=== PATIENT | female | born 1975 | race Caucasian/White ===

== ENCOUNTER 2018-09-14 11:55 | Emergency (ER) | payer OTHER ==
[~2018-09-14] VITALS: Ht 165.1 cm; Wt 59.0 kg
[~2018-09-14 11:55] MED LIST: AUGMENTIN 875875 MG PO; FIORICET 325 MG1 TAB PO; FLEXERIL10 MG PO; HYDROCODONE BIT1 T11 PO; KEFLEX500 MG PO; LOPRESSOR25 MG PO; Lopressor25 MG PO; MEDROL DOSEPAK4 MG PO; MOTRIN600 MG PO; MOTRIN800 MG PO; NKHM; PENICILLIN VK500 MG PO; PRED-PAK 455 MG PO; PREVACID30 MG PO; PROPRANOLOL10 MG PO; SYNTHROID0.025 MG PO; Synthroid,Levo75 MCG PO; ZOFRAN ODT4 MG SL; Zofran4 MG PO
== END 2018-09-14 13:23 | disposition home or self-care (01) ==
LOC: ED 11:55
DX: S61.210A Laceration without foreign body of right index finger without damage to nail, initial encounter (principal); Z79.899 Other long term (current) drug therapy; Z90.49 Acquired absence of other specified parts of digestive tract; W26.8XXA Contact with other sharp object(s), not elsewhere classified, initial encounter; Y93.G1 Activity, food preparation and clean up; Y92.89 Other specified places as the place of occurrence of the external cause; Y99.8 Other external cause status

== ENCOUNTER 2019-04-17 12:36 | Emergency (ER) | payer BC, OTHER ==
[~2019-04-17] VITALS: Ht 165.1 cm; Wt 53.1 kg
[~2019-04-17 12:36] MED LIST changes: -SYNTHROID0.025 MG PO; +Synthroid,Lev100 MCG PO
[2019-04-17 14:15] LABS: BILIRUBIN NEGATIVE (NEGATIVE); BLOOD TRACE-INTACT (NEGATIVE); CLARITY CLEAR (CLEAR); COLOR YELLOW (YELLOW); GLUCOSE NEGATIVE (NEGATIVE); KETONE NEGATIVE (NEGATIVE); LEUKO ESTERASE NEGATIVE (NEGATIVE); NITRITE NEGATIVE (NEGATIVE); PH 6.5 (5.0-9.0); SPECIFIC GRAVITY <= 1.005 (1.005-1.030); UROBILINOGEN 0.2 E.U./dl (0.2-1.0)
[2019-04-17 14:30] LABS: BACTERIA 2+; RBC 0-2 rbc/hpf (0-2); WBC 0-2 wbc/hpf (0-5)
[2019-04-17] MEDS ORDERED: MEDROL DOSEPAK4 MG PO (14:53)
[2019-04-17] MEDS ORDERED: NAPROSYN500 MG PO (14:53)
== END 2019-04-17 14:58 | disposition home or self-care (01) ==
LOC: ED 12:36
PROVIDERS: Nurse Practitioner Family
DX: G89.29 Other chronic pain (principal); M54.5 Low back pain; R39.15 Urgency of urination; R35.0 Frequency of micturition; Z79.899 Other long term (current) drug therapy; Z90.49 Acquired absence of other specified parts of digestive tract

== ENCOUNTER 2019-11-08 14:35 | Emergency (ER) | payer SELFPAY ==
[~2019-11-08] VITALS: Ht 165.1 cm; Wt 49.9 kg
[~2019-11-08 14:35] MED LIST changes: +NAPROSYN500 MG PO
[2019-11-08] MEDS ORDERED: CEPHALEXIN500 M1 PO (17:09)
== END 2019-11-08 17:25 | disposition home or self-care (01) ==
LOC: ED 14:35
DX: S61.210A Laceration without foreign body of right index finger without damage to nail, initial encounter (principal); G43.909 Migraine, unspecified, not intractable, without status migrainosus; E07.9 Disorder of thyroid, unspecified; Z79.899 Other long term (current) drug therapy; Z98.890 Other specified postprocedural states; Z98.51 Tubal ligation status; W22.8XXA Striking against or struck by other objects, initial encounter; Y93.89 Activity, other specified; Y92.89 Other specified places as the place of occurrence of the external cause; Y99.8 Other external cause status

== ENCOUNTER 2020-01-12 11:09 | Emergency (ER) | payer SELFPAY ==
[~2020-01-12] VITALS: Ht 165.1 cm; Wt 49.9 kg
[~2020-01-12 11:09] MED LIST changes: +CEPHALEXIN500 M1 PO
[2020-01-12 11:51] LABS: BASO # 0.1 10*3/uL (0.0-0.1); BASO % 0.6 % (0.0-1.0); EOS # 0.3 10*3/uL (0.0-0.4); EOS % 3.3 % (1.0-4.0); HEMATOCRIT 39.7 % (37.0-47.0); LYMPH # 2.4 10*3/uL (1.3-4.4); LYMPH % 28.3 % (27.0-41.0); MEAN CELL VOLUME 91.9 fl (81.0-99.0); MEAN CORPUSCULAR HGB 29.9 pg (27.0-31.0); MEAN CORPUSCULAR HGB CONC 32.5 g/dl (33.0-37.0); MEAN PLATELET VOLUME 11.7 fl (9.6-12.3); MONO # 0.6 10*3/uL (0.1-1.0); MONO % 6.9 % (3.0-9.0); NEUT # 5.1 10*3/uL (2.3-7.9); NEUT % 60.7 % (47.0-73.0); PLATELET COUNT AUTOMATED 265 10*3/uL (130-400); RED BLOOD COUNT 4.32 10*6/uL (4.10-5.10); RED CELL DISTRI WIDTH 13.8 % (0-14.5); WHITE BLOOD COUNT 8.5 10*3/uL (4.8-10.8)
[2020-01-12 12:11] LABS: ALBUMIN 3.1 gm/dl (3.1-4.5); ALKALINE PHOSPHATASE 153 U/L (45-117); BUN 8 mg/dl (7-24); CHLORIDE 112 mmol/L (98-107); LIPASE 68 U/L (73-393); POTASSIUM 3.9 mmol/L (3.5-5.1); SGOT/AST 22 IU/L (3-35); SGPT/ALT 35 U/L (12-78); SODIUM 140 mmol/L (136-145)
[2020-01-12 12:13] LABS: TROPONIN I < 0.015 ng/ml (<0.045)
[2020-01-12] MEDS ORDERED: DOXYCYCLINE100 M3 PO (12:55)
== END 2020-01-12 12:59 | disposition home or self-care (01) ==
LOC: ED 11:09
PROVIDERS: Nurse Practitioner Family
DX: M79.89 Other specified soft tissue disorders (principal); G43.909 Migraine, unspecified, not intractable, without status migrainosus; Z79.899 Other long term (current) drug therapy

== ENCOUNTER 2021-01-02 12:46 | Emergency (ER) | payer SELFPAY ==
[~2021-01-02] VITALS: Wt 59.0 kg
[~2021-01-02 12:46] MED LIST changes: +DOXYCYCLINE100 M3 PO
[2021-01-02 13:24] LABS: BASO # 0.1 10*3/uL (0.0-0.1); BASO % 0.4 % (0.0-1.0); EOS # 0.1 10*3/uL (0.0-0.4); EOS % 0.8 % (1.0-4.0); HEMATOCRIT 43.3 % (37.0-47.0); LYMPH # 2.2 10*3/uL (1.3-4.4); LYMPH % 16.6 % (27.0-41.0); MEAN CELL VOLUME 92.5 fl (81.0-99.0); MEAN CORPUSCULAR HGB CONC 33.5 g/dl (33.0-37.0); MEAN PLATELET VOLUME 12.3 fl (9.6-12.3); MONO # 0.7 10*3/uL (0.1-1.0); NEUT # 10.2 10*3/uL (2.3-7.9); NEUT % 76.8 % (47.0-73.0); PLATELET COUNT AUTOMATED 304 10*3/uL (130-400); RED BLOOD COUNT 4.68 10*6/uL (4.10-5.10); RED CELL DISTRI WIDTH 13.7 % (0-14.5); WHITE BLOOD COUNT 13.3 10*3/uL (4.8-10.8)
[2021-01-02 13:53] LABS: BILIRUBIN Negative (Negative); BLOOD 2+ (Negative); CLARITY Turbid (Clear); COLOR Dark Yellow (Yellow); GLUCOSE Negative (Negative); KETONE 1+ (Negative); LEUKO ESTERASE 1+ (Negative); NITRITE Negative (Negative); PH 5.5 (4.5-8.0); SPECIFIC GRAVITY 1.025 (1.001-1.030)
[2021-01-02 14:00] LABS: ALBUMIN 3.4 gm/dl (3.1-4.5); ALKALINE PHOSPHATASE 118 U/L (45-117); BUN 10 mg/dl (7-24); CHLORIDE 108 mmol/L (98-107); CREATININE 0.61 mg/dL (0.55-1.02); LIPASE 47 U/L (73-393); POTASSIUM 3.5 mmol/L (3.5-5.1); SGOT/AST 14 IU/L (3-35); SGPT/ALT 20 U/L (12-78); SODIUM 139 mmol/L (136-145); TOTAL PROTEIN 8.2 gm/dL (6.4-8.2)
[2021-01-02 14:16] LABS: BACTERIA TRACE; EPITHELIAL CELLS TNTC; MUCOUS 2+; RBC 0-2 rbc/hpf (0-2)
[2021-01-02] MEDS ORDERED: ZOFRAN4 MG PO (16:29)
[2021-01-02] MEDS ORDERED: SEPTDS PO (16:29)
== END 2021-01-02 16:35 | disposition home or self-care (01) ==
LOC: ED 12:46
PROVIDERS: Emergency Medicine
DX: R30.0 Dysuria (principal); R10.84 Generalized abdominal pain; Z98.51 Tubal ligation status; Z79.899 Other long term (current) drug therapy

== ENCOUNTER 2022-10-27 15:03 | Emergency (ER) | payer OTHER ==
[~2022-10-27] VITALS: Ht 165.1 cm; Wt 56.2 kg
[~2022-10-27 15:03] MED LIST changes: +SEPTDS PO; +ZOFRAN4 MG PO
== END 2022-10-27 16:42 | disposition left against medical advice (07) ==
LOC: ED 15:03
DX: R10.32 Left lower quadrant pain (principal); Z53.21 Procedure and treatment not carried out due to patient leaving prior to being seen by health care provider

== ENCOUNTER → 2023-05-25 | Outpatient (CLI) | payer OTHER ==
[2023-05-25 12:50] LABS: HEMATOCRIT 37.8 % (37.0-47.0); MEAN CELL VOLUME 93.6 fl (81.0-99.0); MEAN CORPUSCULAR HGB 31.7 pg (27.0-31.0); MEAN CORPUSCULAR HGB CONC 33.9 g/dl (33.0-37.0); MEAN PLATELET VOLUME 11.2 fl (9.6-12.3); RED BLOOD COUNT 4.04 10*6/uL (4.10-5.10); RED CELL DISTRI WIDTH 13.2 % (0-14.5); WHITE BLOOD COUNT 10.9 10*3/uL (4.8-10.8)
[2023-05-25 13:23] LABS: ALKALINE PHOSPHATASE 124 U/L (46-116); BUN 6 mg/dl (9-23); CHLORIDE 107 mmol/L (98-107); CHOLESTEROL 173 mg/dL (<200); FREE T4 0.42 ng/dl (0.89-1.76); LDL CHOLESTEROL 99 mg/dL (9-159); POTASSIUM 3.7 mmol/L (3.4-5.1); SGPT/ALT 11 U/L (5-49); TOTAL PROTEIN 7.3 gm/dL (6.0-8.0); TRIGLYCERIDES 177 mg/dl (<150)
[2023-05-25 13:25] LABS: VITAMIN D, 25-HYDROXY 30.1 ng/mL (30-100)
== END | disposition home or self-care (01) ==
LOC: LAB 12:26
PROVIDERS: ATTEND Family Medicine
DX: E78.00 Pure hypercholesterolemia, unspecified (principal); E55.9 Vitamin D deficiency, unspecified; E06.3 Autoimmune thyroiditis; R53.83 Other fatigue; Z72.0 Tobacco use; M79.10 Myalgia, unspecified site; M25.50 Pain in unspecified joint

== ENCOUNTER → 2023-06-24 | Outpatient (CLI) | payer OTHER | END | disposition home or self-care (01) | LOC: RAD 12:59 | PROVIDERS: ATTEND Family Medicine | DX: M25.512 Pain in left shoulder (principal); Z91.81 History of falling ==

== ENCOUNTER → 2023-07-28 | Outpatient (CLI) | payer OTHER | END | disposition home or self-care (01) | LOC: US 07-15 09:00 → MAMMO 07-15 09:00 → US 07-15 09:30 → MAMMO 09:00 | PROVIDERS: ATTEND Family Medicine | DX: N63.10 Unspecified lump in the right breast, unspecified quadrant (principal); R92.343 Mammographic extreme density, bilateral breasts ==

== ENCOUNTER → 2023-08-13 | Outpatient (CLI) | payer OTHER ==
[2023-08-13 13:07] LABS: HEMATOCRIT 43.3 % (37.0-47.0); MEAN CELL VOLUME 92.7 fl (81.0-99.0); MEAN CORPUSCULAR HGB 30.4 pg (27.0-31.0); MEAN CORPUSCULAR HGB CONC 32.8 g/dl (33.0-37.0); MEAN PLATELET VOLUME 11.7 fl (9.6-12.3); RED BLOOD COUNT 4.67 10*6/uL (4.10-5.10); RED CELL DISTRI WIDTH 12.3 % (0-14.5); WHITE BLOOD COUNT 10.1 10*3/uL (4.8-10.8)
[2023-08-13 13:41] LABS: ALKALINE PHOSPHATASE 125 U/L (46-116); CHLORIDE 107 mmol/L (98-107); CHOLESTEROL 171 mg/dL (<200); FREE T4 0.93 ng/dl (0.89-1.76); LDL CHOLESTEROL 112 mg/dL (9-159); POTASSIUM 3.6 mmol/L (3.4-5.1); SGPT/ALT 8 U/L (5-49); TOTAL PROTEIN 7.8 gm/dL (6.0-8.0); TRIGLYCERIDES 131 mg/dl (<150); VITAMIN D, 25-HYDROXY 24.3 ng/mL (30-100)
[2023-08-13 13:58] LABS: BUN < 5 mg/dl (9-23)
== END | disposition home or self-care (01) ==
LOC: LAB 12:41
PROVIDERS: ATTEND Family Medicine
DX: E03.9 Hypothyroidism, unspecified (principal); E55.9 Vitamin D deficiency, unspecified; R53.83 Other fatigue; G47.00 Insomnia, unspecified; Z79.899 Other long term (current) drug therapy; Z51.81 Encounter for therapeutic drug level monitoring

== ENCOUNTER → 2023-09-29 | Outpatient (CLI) | payer OTHER | END | disposition home or self-care (01) | LOC: CARD 01:37 | PROVIDERS: ATTEND Internal Medicine Cardiovascular Disease | DX: R01.1 Cardiac murmur, unspecified (principal); R06.02 Shortness of breath; Z87.898 Personal history of other specified conditions ==

== ENCOUNTER → 2023-11-09 | Outpatient (CLI) | payer OTHER ==
[2023-11-09 12:45] LABS: HEMATOCRIT 41.1 % (37.0-47.0); MEAN CELL VOLUME 92.2 fl (81.0-99.0); MEAN CORPUSCULAR HGB 29.8 pg (27.0-31.0); MEAN CORPUSCULAR HGB CONC 32.4 g/dl (33.0-37.0); MEAN PLATELET VOLUME 11.9 fl (9.6-12.3); RED BLOOD COUNT 4.46 10*6/uL (4.10-5.10); RED CELL DISTRI WIDTH 13.2 % (0-14.5); WHITE BLOOD COUNT 8.3 10*3/uL (4.8-10.8)
[2023-11-09 13:16] LABS: ALKALINE PHOSPHATASE 114 U/L (46-116); BUN 6 mg/dl (9-23); CHLORIDE 108 mmol/L (98-107); FREE T4 1.11 ng/dl (0.89-1.76); POTASSIUM 3.2 mmol/L (3.4-5.1); SGPT/ALT 7 U/L (5-49); TOTAL PROTEIN 7.5 gm/dL (6.0-8.0)
== END | disposition home or self-care (01) ==
LOC: LAB 11:55
PROVIDERS: ATTEND Family Medicine
DX: K21.9 Gastro-esophageal reflux disease without esophagitis (principal); E03.9 Hypothyroidism, unspecified; R53.83 Other fatigue; K59.00 Constipation, unspecified

== ENCOUNTER 2023-11-30 11:27 | Emergency (ER) | payer SELFPAY ==
[~2023-11-30] VITALS: Ht 167.6 cm; Wt 56.7 kg
[2023-11-30] MEDS ORDERED: HYOSCYAMINE0.125 M2 SL (11:49)
[2023-11-30] MEDS ORDERED: Synthroid,Levo88 MCG PO (11:49)
[2023-11-30] MEDS ORDERED: LACTULOSE10 GM/151 PO (11:50)
[2023-11-30] MEDS ORDERED: [UNRECOGNIZED DRUG - OTHER] PO (11:51)
[2023-11-30] MEDS ORDERED: AMOX-CLAV 875-1 EACH PO (13:36)
== END 2023-11-30 13:40 | disposition home or self-care (01) ==
LOC: ED 11:27
DX: S60.412A Abrasion of right middle finger, initial encounter (principal); L08.9 Local infection of the skin and subcutaneous tissue, unspecified; K21.9 Gastro-esophageal reflux disease without esophagitis; E03.9 Hypothyroidism, unspecified; Z79.2 Long term (current) use of antibiotics; Z79.899 Other long term (current) drug therapy; Z98.890 Other specified postprocedural states; Z98.51 Tubal ligation status; X58.XXXA Exposure to other specified factors, initial encounter; Y93.89 Activity, other specified; Y92.008 Other place in unspecified non-institutional (private) residence as the place of occurrence of the external cause; Y99.8 Other external cause status

== ENCOUNTER 2024-05-29 16:49 | Emergency (ER) | payer OTHER ==
[~2024-05-29] VITALS: Ht 165.1 cm; Wt 56.7 kg
[~2024-05-29 16:49] MED LIST changes: +AMOX-CLAV 875-1 EACH PO; +HYOSCYAMINE0.125 M2 SL; +LACTULOSE10 GM/151 PO; +Synthroid,Levo88 MCG PO; +[UNRECOGNIZED DRUG - OTHER] PO
[2024-05-29] MEDS ORDERED: IOHEXOL 300 MG/ML 100 ML VIAL IV ONE (17:30)
[2024-05-29 17:34] LABS: BILIRUBIN Negative (Negative); BLOOD 3+ (Negative); CLARITY Cloudy (Clear); COLOR Red (Yellow); GLUCOSE Negative (Negative); KETONE Negative (Negative); LEUKO ESTERASE 1+ (Negative); NITRITE Negative (Negative); PH 6.5 (4.5-8.0); UROBILINOGEN 0.2 E.U./dl (0.0-1.0)
[2024-05-29 17:41] LABS: BACTERIA 2+; RBC TNTC rbc/hpf (0-2)
[2024-05-29 17:42] LABS: EPITHELIAL CELLS 16-20
[2024-05-29 17:44] LABS: BASO # 0.1 10*3/uL (0.0-0.1); BASO % 0.6 % (0.0-1.0); EOS # 0.2 10*3/uL (0.0-0.4); EOS % 1.7 % (1.0-4.0); HEMATOCRIT 39.9 % (37.0-47.0); MEAN CELL VOLUME 92.4 fl (81.0-99.0); MEAN CORPUSCULAR HGB 30.8 pg (27.0-31.0); MEAN CORPUSCULAR HGB CONC 33.3 g/dl (33.0-37.0); MEAN PLATELET VOLUME 11.6 fl (9.6-12.3); MONO # 0.6 10*3/uL (0.1-1.0); NEUT # 6.9 10*3/uL (2.3-7.9); PLATELET COUNT AUTOMATED 364 10*3/uL (130-400); RED BLOOD COUNT 4.32 10*6/uL (4.10-5.10); RED CELL DISTRI WIDTH 13.3 % (0-14.5); WHITE BLOOD COUNT 11.5 10*3/uL (4.8-10.8)
[2024-05-29 18:05] LABS: ALKALINE PHOSPHATASE 135 U/L (46-116); BUN 5 mg/dl (9-23); CHLORIDE 103 mmol/L (98-107); POTASSIUM 3.2 mmol/L (3.4-5.1); SGPT/ALT 15 U/L (5-49)
[2024-05-29] MEDS ORDERED: POTASSIUM CHLORIDE 20 MEQ TAB PO ONE (18:15)
[2024-05-29] MEDS ORDERED: Ondansetron4 MG PO (19:39)
[2024-05-29] MEDS ORDERED: FLOMAX0.4 MG PO (19:39)
[2024-05-29] MEDS ORDERED: KETOROLAC10 MG PO (19:39)
[2024-05-29] MEDS ORDERED: Tamsulosin Hydrochloride 0.4 MG CAP PO ONE (19:40)
[2024-05-29] MEDS ORDERED: Ketorolac Tromethamine 30 MG/ML VIAL IM ONE (19:40)
[2024-05-29] MEDS ORDERED: Ondansetron Hydrochloride 4 MG TAB SL ONE (19:40)
== END 2024-05-29 19:53 | disposition home or self-care (01) ==
LOC: ED 16:49
PROVIDERS: Nurse Practitioner Family
DX: N20.0 Calculus of kidney (principal); R31.9 Hematuria, unspecified; E87.6 Hypokalemia; R11.2 Nausea with vomiting, unspecified; Z90.49 Acquired absence of other specified parts of digestive tract; Z98.51 Tubal ligation status; Z98.890 Other specified postprocedural states; Z87.891 Personal history of nicotine dependence

== ENCOUNTER → 2024-08-21 | Outpatient (CLI) | payer MEDICAID ==
[~2024-08-21] MED LIST changes: +FLOMAX0.4 MG PO; +KETOROLAC10 MG PO; +Ondansetron4 MG PO
== END | disposition home or self-care (01) ==
LOC: CT 10:00
PROVIDERS: ATTEND Internal Medicine Critical Care Medicine
DX: R91.8 Other nonspecific abnormal finding of lung field (principal); J30.89 Other allergic rhinitis; J43.9 Emphysema, unspecified; Z87.891 Personal history of nicotine dependence